=== PATIENT | female | born 1995 | race Caucasian/White ===

== ENCOUNTER 2016-08-22 05:13 | Emergency (ER) | payer OTHER ==
[2016-08-22 05:21] VITALS: BP 127/77; PULSE 102; RESP 16; TEMP 100.9; O2SAT 96
[2016-08-22] MEDS ORDERED: ACETAMINOPHEN 325 MG TAB ONE (06:07)
--- NOTE | 2016-08-22 06:08 | EDPHY ---
H & P Stated Complaint: dx @[facility] 08/20 uterine infx/Chlamydia; subj fever worse Time Seen by Provider: 08/22/16 05:46 HPI/ROS: HPI The patient presents with fever and chills tonight beginning at about 3:00 a.m.. She awoke feeling very warm and then developed chills. These have been constant and are moderate in severity. She has not had any fever recently. [facility] She recently had the chlamydia test that was positive. She was given ceftriaxone and azithromycin and a prescription for doxycycline. She has not started to take the doxycycline yet. She also was diagnosed with a UTI and started on Augmentin for this. She does not have any pelvic or abdominal pain or back pain currently.. REVIEW OF SYSTEMS Constitutional: Positive for fever and chills Eyes: No discharge. ENT: No sore throat. Cardiovascular: No chest pain, no palpitations. Respiratory: No cough, no shortness of breath. Gastrointestinal: No abdominal pain, no vomiting. Genitourinary: No hematuria. Musculoskeletal: No back pain. Skin: No rashes. Neurological: No headache. PMHx: Healthy Soc Hx: College student PHYSICAL General Appearance: Alert, no distress Eyes: Pupils equal and round no pallor or injection ENT, Mouth: Mucous membranes moist Respiratory: There are no retractions, lungs are clear to auscultation Cardiovascular: Regular rate and rhythm Gastrointestinal: Abdomen is soft and non-tender, no masses, bowel sounds normal Neurological: A&O, moves all extremities Skin: Warm and dry, no rashes Musculoskeletal: Neck is supple non tender Extremities: symmetrical, full range of motion Psychiatric: Patient is oriented X 3, there is no agitation Source: Patient Exam Limitations: No limitations - Personal History LMP (Females 10-55): 8-14 Days Ago Current Tetanus/Diphtheria Vaccine: Yes Current Tetanus Diphtheria and Acellular Pertussis (TDAP): Yes - Medical/Surgical History Hx Asthma: No Hx Chronic Respiratory Disease: No Hx Diabetes: No Hx Cardiac Disease: No Hx Renal Disease: No Hx Cirrhosis: No Hx Alcoholism: No Hx HIV/AIDS: No Hx Splenectomy or Spleen Trauma: No Other PMH: denies - Social History Smoking Status: Never smoked Constitutional: Initial Vital Signs Temperature (C) 38.3 C 08/22/16 05:14 Heart Rate 102 H 08/22/16 05:14 Respiratory Rate 16 08/22/16 05:14 Blood Pressure 127/77 H 08/22/16 05:14 O2 Sat (%) 96 08/22/16 05:14 O2 Delivery Mode Room Air Allergies/Adverse Reactions: No Known Allergies Allergy (Unverified 08/22/16 05:21) Home Medications: Medication Instructions Recorded Augmentin 500/125 MG TAB (*) 08/22/16 Diflucan 08/22/16 Doxycycline Monohydrate 08/22/16 Medical Decision Making Differential Diagnosis: This is a 21-year-old female, recently diagnosed with PID, started on antibiotics though has not started her course of doxycycline who presents with a fever for the last several hours. On exam, her vital signs are normal except for a fever. She does not have any abdominal or flank tenderness on exam and appears quite well. I feel that she likely has PID as the cause of her fever though has not been adequately treated yet. Because she does not have any abdominal or pelvic tenderness on exam, I doubt complication such as tubo-ovarian abscess. [facility] and [facility] appointment tomorrow with the doctor there. She is able to tolerate p.o. without difficulty. I do not feel further workup or admission is warranted at this time. I have advised her to take ibuprofen and Tylenol for fever and start taking doxycycline. Other considerations include pyelonephritis, cystitis. - Data Points Medications Given: Discontinued Medications Acetaminophen (Tylenol) 650 mg PO EDNOW ONE Stop: 08/22/16 06:13 Last Admin: 08/22/16 06:12 Dose: 650 mg Departure - Departure Disposition: Home, Routine, Self-Care Clinical Impression: PID (acute pelvic inflammatory disease), Fever Condition: Good Instructions: Pelvic Inflammatory Disease (ED) Additional Instructions: Please by a thermometer so that you can check your temperatures and record the numbers. You can take Tylenol as needed for fever. Please follow up with the city [facility] as planned. Referrals: TAR[facility] Hidalgo,. [Clinic] - As per Instructions
[2016-08-22] MEDS ORDERED: ACETAMINOPHEN 325 MG TAB PO ONE (06:12)
== END 2016-08-22 06:11 | disposition home or self-care (01) ==
DX: N73.9 Female pelvic inflammatory disease, unspecified (principal)